=== PATIENT | male | born 1995 | race Two or more races ===

== ENCOUNTER 2018-04-18 05:33 | Emergency (ER) | payer OTHER ==
[~2018-04-18] VITALS: Ht 180.3 cm; Wt 63.5 kg
[2018-04-18] MEDS ORDERED: PYRIDIUM200 MG PO (11:09)
[2018-04-18] MEDS ORDERED: CIPRO500 MG PO (11:09)
== END 2018-04-18 12:20 | disposition home or self-care (01) ==
LOC: ER 05:33
DX: N39.0 Urinary tract infection, site not specified (principal)

== ENCOUNTER 2021-11-15 11:08 | Emergency (ER) | payer OTHER ==
[~2021-11-15] VITALS: Ht 180.3 cm; Wt 65.8 kg
[~2021-11-15 11:08] MED LIST: CIPRO500 MG PO; PYRIDIUM200 MG PO
== END 2021-11-15 15:58 | disposition home or self-care (01) ==
LOC: ER 11:08
DX: N20.0 Calculus of kidney (principal); R10.9 Unspecified abdominal pain

== ENCOUNTER 2023-02-10 00:14 | Emergency (ER) | payer OTHER ==
[~2023-02-10] VITALS: Ht 180.3 cm; Wt 70.3 kg
== END 2023-02-10 13:48 | disposition home or self-care (01) ==
LOC: ER 00:14
DX: N20.0 Calculus of kidney (principal); Z87.442 Personal history of urinary calculi